=== PATIENT | male | born 1990 | race Caucasian/White ===

== ENCOUNTER 2016-10-08 21:32 | Inpatient (IN) | payer BC, OTHER ==
[~2016-10-08] VITALS: Ht 177.8 cm; Wt 70.0 kg
[~2016-10-08 21:32] MED LIST: ALBUTEROL SULF8.5 GM IH; CLEAR EYES ITCH15 ML BOTH EYES; ENTOCORT EC3 MG PO; FOLVITE1 M1 PO; Flagyl PO; Flovent 110 mcg IH; Folvite PO; METHOTREXATE2.5 M2 PO; METRONIDAZOLE500 MG PO; PENTASA500 MG PO; PREDNISONE10 M1 PO; PREDNISONE10 MG PO; PREDNISONE20 MG PO; PREVACID30 MG PO; PROAIR HFA8.5 GM IH; Pentasa PO; Prevacid PO; Proventil,Ventolin H IH; REMICADE10 MG/ML IV; TRAMADOL HCL50 MG PO; Zantac PO; predniSONE PO
[2016-10-08 22:25] LABS: HEMATOCRIT 48.1 % (38.0-50.0); MCH 27.1 PG (29.0-34.0); MCHC 33.1 G/DL (30.0-36.0); MCV 82.1 FL (86-99); MEAN PLAT.VOLUME 9.1 uM^3 (9.0-12.4); PLATELET COUNT 347 K/uL (156-360); RBC DIS.WIDTH-CV 13.2 % (11.8-14.6); RBC DIS.WIDTH-SD 38.6 % (39-53); RED BLOOD COUNT 5.86 M/uL (4.00-5.50); WHITE BLOOD COUNT 16.1 K/uL (4.1-10.2)
[2016-10-08 22:40] LABS: CHLORIDE 108 mEq/L (99-109); POTASSIUM 4.4 mEq/L (3.7-5.4); SODIUM 139 mEq/L (136-147)
[2016-10-08 22:42] LABS: GLUCOSE 112 mg/dL (70-99)
[2016-10-08 22:43] LABS: ANION GAP 8 MEQ/L (2-14)
[2016-10-08 22:44] LABS: TOTAL BILIRUBIN 0.5 mg/dL (0.0-1.0)
[2016-10-08 22:47] LABS: ALKALINE PHOSPHATASE 112 IU/L (3-129); GFR ESTIMATE (CALCULATED) > 59 mL/min/; UREA NITROGEN (BUN) 11 mg/dL (9-23)
[2016-10-08 23:00] LABS: LIPASE 14 U/L (1.0-51.0)
[2016-10-08] MEDS ORDERED: HUMIRA40 MG/0.1 SC (23:27)
[2016-10-09 01:20] LABS: ADD MIUA? NO; BILIRUBIN NEGATIVE; BLOOD NEGATIVE; COLOR YELLOW ((YELLOW)); GLUCOSE (STRIP) NEGATIVE; KETONES 20; LEUKOCYTES NEGATIVE; NITRITE NEGATIVE; PROTEIN (STRIP) NEGATIVE; SPECIFIC GRAVITY 1.044 (1.000-1.030); UCUL ADDED? NO; UROBILINOGEN 0.2 MG/DL (0.2-1.0)
[2016-10-09 08:29] VITALS: BP 122/71
[2016-10-09 11:56] VITALS: BP 128/69
[2016-10-09] MEDS ORDERED: ALLEGRA60 MG PO (12:33)
[2016-10-09] MEDS ORDERED: SINGULAIR10 MG PO (12:33)
[2016-10-09 15:53] VITALS: BP 128/66
[2016-10-09 19:14] VITALS: BP 119/66
[2016-10-10 00:11] VITALS: BP 115/61
[2016-10-10 03:25] VITALS: BP 120/67
[2016-10-10 06:10] LABS: EOSINOPHIL (%) 0 % (0-5); HEMATOCRIT 40.3 % (38.0-50.0); IMMATURE GRANULOCYTE (%) 0.7 % (0.0-0.7); IMMATURE GRANULOCYTE COUNT 0.1 K/uL; INSTRUMENT ABS NEUTROPHIL CT 10.6 K/uL; LYMPHOCYTE COUNT 1.5 K/uL (1.0-2.8); MCH 27.7 PG (29.0-34.0); MEAN PLAT.VOLUME 9.5 uM^3 (9.0-12.4); MONOCYTE (%) 1.9 % (3-12); MONOCYTE COUNT 0.2 K/uL (0-0.8); NEUTROPHIL (%) 85.5 % (45-76); NEUTROPHIL COUNT 10.6 K/uL (1.8-6.4); PLATELET COUNT 286 K/uL (156-360); RBC DIS.WIDTH-CV 13.2 % (11.8-14.6); RBC DIS.WIDTH-SD 41.1 % (39-53); WHITE BLOOD COUNT 12.4 K/uL (4.1-10.2)
[2016-10-10 06:29] LABS: ANION GAP 7 MEQ/L (2-14); CHLORIDE 109 MEQ/L (99-109); GFR ESTIMATE (CALCULATED) > 59 mL/min/; GLUCOSE 130 mg/dL (70-99); POTASSIUM 4.5 MEQ/L (3.7-5.4); SAMPLE HEMOLYSIS CHECK 0; SAMPLE ICTERIC CHECK 0; SAMPLE LIPEMIA CHECK 0; SODIUM 141 MEQ/L (136-147); UREA NITROGEN (BUN) 11 mg/dL (9-23)
[2016-10-10 08:12] VITALS: BP 116/59
[2016-10-10 11:20] VITALS: BP 116/58
[2016-10-10 15:45] VITALS: BP 118/56
[2016-10-10 20:10] VITALS: BP 112/60
[2016-10-11 00:36] VITALS: BP 108/58
[2016-10-11 08:45] VITALS: BP 116/63
[2016-10-11 09:43] LABS: HEMATOCRIT 42.9 % (38.0-50.0); MCH 28.5 PG (29.0-34.0); MCHC 33.6 G/DL (30.0-36.0); MEAN PLAT.VOLUME 9.7 uM^3 (9.0-12.4); PLATELET COUNT 300 K/uL (156-360); RBC DIS.WIDTH-CV 13.3 % (11.8-14.6); RBC DIS.WIDTH-SD 40.8 % (39-53); RED BLOOD COUNT 5.05 M/uL (4.00-5.50); WHITE BLOOD COUNT 14.1 K/uL (4.1-10.2)
[2016-10-11 10:48] LABS: ANION GAP 11 MEQ/L (2-14); CHLORIDE 107 MEQ/L (99-109); GFR ESTIMATE (CALCULATED) > 59 mL/min/; GLUCOSE 129 mg/dL (70-99); POTASSIUM 4.6 MEQ/L (3.7-5.4); SAMPLE HEMOLYSIS CHECK 1; SAMPLE ICTERIC CHECK 0; SAMPLE LIPEMIA CHECK 0; SODIUM 142 MEQ/L (136-147); UREA NITROGEN (BUN) 18 mg/dL (9-23)
[2016-10-11] MEDS ORDERED: BENTYL20 MG PO (14:05)
[2016-10-11] MEDS ORDERED: PREDNISONE10 MG PO (14:26)
== END 2016-10-11 15:26 | disposition home or self-care (01) | DRG 386 ==
LOC: EME 21:32 → RME 21:32 → EDOF 10-09 02:06 → 3EAST 10-09 02:06
PROVIDERS: Hospitalist; Physician Assistant
DX: K50.012 Crohn's disease of small intestine with intestinal obstruction (principal); K56.69 Other intestinal obstruction; J45.909 Unspecified asthma, uncomplicated; E86.0 Dehydration; D72.829 Elevated white blood cell count, unspecified
CPT/HCPCS: 74020; 74177; 80048; 80053; 81003; 83690; 85025; 85027; 87493; 99202; 99281; 99285; J1650; J1885; J1956; J2270; J2405; J2920; J7030; J7042; S0028; S0030

== ENCOUNTER 2017-01-02 17:58 | Inpatient (IN) | payer BC, OTHER ==
[~2017-01-02] VITALS: Ht 177.8 cm; Wt 71.5 kg
[~2017-01-02 17:58] MED LIST changes: +ALLEGRA ALLERG180 MG PO; +BENTYL20 MG PO; +HUMIRA40 MG/0.1 SC; +SINGULAIR10 MG PO
[2017-01-02 19:17] LABS: HEMATOCRIT 34.3 % (38.0-50.0); MCH 28.1 PG (29.0-34.0); MCHC 34.1 G/DL (30.0-36.0); MCV 82.3 FL (86-99); MEAN PLAT.VOLUME 9.2 uM^3 (9.0-12.4); PLATELET COUNT 268 K/uL (156-360); RBC DIS.WIDTH-CV 13.2 % (11.8-14.6); RBC DIS.WIDTH-SD 39.5 % (39-53); RED BLOOD COUNT 4.17 M/uL (4.00-5.50); WHITE BLOOD COUNT 11.5 K/uL (4.1-10.2)
[2017-01-02 19:28] LABS: CHLORIDE 112 mEq/L (99-109); POTASSIUM 4.2 mEq/L (3.7-5.4); SODIUM 143 mEq/L (136-147)
[2017-01-02 19:30] LABS: GLUCOSE 113 mg/dL (70-99)
[2017-01-02 19:31] LABS: ANION GAP 7 MEQ/L (2-14)
[2017-01-02 19:32] LABS: TOTAL BILIRUBIN 0.6 mg/dL (0.0-1.0)
[2017-01-02 19:34] LABS: ALKALINE PHOSPHATASE 77 IU/L (3-129); GFR ESTIMATE (CALCULATED) > 59 mL/min/
[2017-01-02 19:35] LABS: UREA NITROGEN (BUN) 29 mg/dL (9-23)
[2017-01-02 23:28] LABS: ADD MIUA? NO; BILIRUBIN NEGATIVE; BLOOD NEGATIVE; COLOR STRAW ((YELLOW)); GLUCOSE (STRIP) NEGATIVE; KETONES NEGATIVE; LEUKOCYTES NEGATIVE; NITRITE NEGATIVE; PROTEIN (STRIP) NEGATIVE; UCUL ADDED? NO; UROBILINOGEN 0.2 MG/DL (0.2-1.0)
[2017-01-02 23:40] LABS: SPECIFIC GRAVITY 1.052 (1.000-1.030)
[2017-01-03] VITALS (8 sets, daily range): BP systolic 109–124; BP diastolic 53–60
[2017-01-03 00:43] LABS: HEMATOCRIT 30.7 % (38.0-50.0); MCV 82.7 FL (86-99)
[2017-01-03 07:06] LABS: HEMATOCRIT 33.5 % (38.0-50.0); MCV 82.9 FL (86-99)
[2017-01-03 11:28] LABS: C DIFF TOXIN NEGATIVE (NEGATIVE); PROBE CHECK PASS; SPECIMEN PROCESSING CONTROL PASS
[2017-01-03 13:00] LABS: HEMATOCRIT 33.6 % (38.0-50.0); MCV 83.4 FL (86-99)
[2017-01-04] VITALS (7 sets, daily range): BP systolic 112–130; BP diastolic 54–62
[2017-01-04 06:39] LABS: HEMATOCRIT 26.9 % (38.0-50.0); MCHC 33.5 G/DL (30.0-36.0); MCV 83.5 FL (86-99); MEAN PLAT.VOLUME 9.7 uM^3 (9.0-12.4); PLATELET COUNT 244 K/uL (156-360); RBC DIS.WIDTH-CV 13.3 % (11.8-14.6); RBC DIS.WIDTH-SD 40.4 % (39-53); WHITE BLOOD COUNT 13.8 K/uL (4.1-10.2)
[2017-01-04 06:40] LABS: RED BLOOD COUNT 3.22 M/uL (4.00-5.50)
[2017-01-04 07:01] LABS: ALKALINE PHOSPHATASE 60 IU/L (3-129); ANION GAP 6 MEQ/L (2-14); CHLORIDE 110 MEQ/L (99-109); GFR ESTIMATE (CALCULATED) > 59 mL/min/; GLUCOSE 129 mg/dL (70-99); POTASSIUM 4.5 MEQ/L (3.7-5.4); SAMPLE HEMOLYSIS CHECK 0; SAMPLE ICTERIC CHECK 0; SAMPLE LIPEMIA CHECK 0; SODIUM 143 MEQ/L (136-147); TOTAL BILIRUBIN 0.4 MG/DL (0.0-1.0); UREA NITROGEN (BUN) 17 mg/dL (9-23)
[2017-01-04 11:16] LABS: POINT-OF-CARE METER ID UU14117124
[2017-01-05 03:31] VITALS: BP 112/56
[2017-01-05 05:54] LABS: MCH 27.7 PG (29.0-34.0); MCHC 32.7 G/DL (30.0-36.0); MCV 84.7 FL (86-99); MEAN PLAT.VOLUME 9.8 uM^3 (9.0-12.4); PLATELET COUNT 235 K/uL (156-360); RBC DIS.WIDTH-CV 13.6 % (11.8-14.6); RBC DIS.WIDTH-SD 41.6 % (39-53); RED BLOOD COUNT 3.07 M/uL (4.00-5.50); WHITE BLOOD COUNT 11.1 K/uL (4.1-10.2)
[2017-01-05 06:16] LABS: ANION GAP 5 MEQ/L (2-14); CHLORIDE 110 MEQ/L (99-109); GFR ESTIMATE (CALCULATED) > 59 mL/min/; GLUCOSE 129 mg/dL (70-99); POTASSIUM 4.3 MEQ/L (3.7-5.4); SAMPLE HEMOLYSIS CHECK 0; SAMPLE ICTERIC CHECK 0; SAMPLE LIPEMIA CHECK 0; SODIUM 143 MEQ/L (136-147); UREA NITROGEN (BUN) 18 mg/dL (9-23)
[2017-01-05 07:44] VITALS: BP 109/55
[2017-01-05 11:56] VITALS: BP 115/58
[2017-01-05 15:44] VITALS: BP 121/57
[2017-01-05 16:02] LABS: HEMATOCRIT 26.9 % (38.0-50.0); MCV 84.3 FL (86-99)
[2017-01-05 23:37] LABS: HEMATOCRIT 27.6 % (38.0-50.0); MCV 84.1 FL (86-99)
[2017-01-05 23:55] VITALS: BP 115/57
[2017-01-06 07:57] VITALS: BP 115/59
[2017-01-06 07:59] LABS: HEMATOCRIT 27.2 % (38.0-50.0); MCH 27.4 PG (29.0-34.0); MCV 85.8 FL (86-99); MEAN PLAT.VOLUME 9.6 uM^3 (9.0-12.4); PLATELET COUNT 246 K/uL (156-360); RBC DIS.WIDTH-CV 13.5 % (11.8-14.6); RBC DIS.WIDTH-SD 42.1 % (39-53); RED BLOOD COUNT 3.17 M/uL (4.00-5.50); WHITE BLOOD COUNT 11.6 K/uL (4.1-10.2)
[2017-01-06 11:58] VITALS: BP 114/65
[2017-01-06 14:48] LABS: HEMATOCRIT 27.1 % (38.0-50.0)
[2017-01-06 15:55] VITALS: BP 124/60
[2017-01-06 19:25] VITALS: BP 127/81
[2017-01-06 23:16] LABS: HEMATOCRIT 27.4 % (38.0-50.0); MCV 83.5 FL (86-99)
[2017-01-07 00:12] VITALS: BP 118/56
[2017-01-07 04:01] VITALS: BP 125/59
[2017-01-07 08:35] VITALS: BP 123/59
[2017-01-07 08:41] LABS: MCV 85.3 FL (86-99)
[2017-01-07 14:54] LABS: HEMATOCRIT 29.8 % (38.0-50.0); MCV 85.9 FL (86-99)
[2017-01-07 16:04] VITALS: BP 124/66
[2017-01-07 23:30] VITALS: BP 105/54
[2017-01-07 23:51] LABS: HEMATOCRIT 25.8 % (38.0-50.0); MCV 83.2 FL (86-99)
[2017-01-08 05:04] VITALS: BP 98/52
[2017-01-08 06:08] LABS: HEMATOCRIT 26.7 % (38.0-50.0); MCHC 32.2 G/DL (30.0-36.0); MEAN PLAT.VOLUME 9.8 uM^3 (9.0-12.4); PLATELET COUNT 271 K/uL (156-360); RBC DIS.WIDTH-CV 13.2 % (11.8-14.6); RBC DIS.WIDTH-SD 39.9 % (39-53); RED BLOOD COUNT 3.18 M/uL (4.00-5.50); WHITE BLOOD COUNT 9.2 K/uL (4.1-10.2)
[2017-01-08 08:11] VITALS: BP 116/55
[2017-01-08] MEDS ORDERED: MEDROL DOSEPAK4 MG PO (11:20)
[2017-01-08] MEDS ORDERED: FLAGYL500 MG PO (11:21)
== END 2017-01-08 15:24 | disposition home or self-care (01) | DRG 386 ==
LOC: RME 17:58 → EME 17:58 → EDOF 23:01 → 3EAST 23:01 → ENRESERV 23:04 → 3EAST 01-03 00:25
PROVIDERS: Hospitalist; Internal Medicine Gastroenterology; Physician Assistant Medical
DX: K50.011 Crohn's disease of small intestine with rectal bleeding (principal); D62 Acute posthemorrhagic anemia; E86.0 Dehydration; K64.1 Second degree hemorrhoids; R55 Syncope and collapse; K57.30 Diverticulosis of large intestine without perforation or abscess without bleeding; J45.20 Mild intermittent asthma, uncomplicated; K21.9 Gastro-esophageal reflux disease without esophagitis
CPT/HCPCS: 74177; 80048; 80053; 81003; 82948; 85014; 85018; 85027; 86850; 86900; 86901; 87493; 93005; 99202; 99281; 99285; J2250; J2405; J2765; J2930; J3010; J7030; S0028; S0030

== ENCOUNTER 2017-07-25 10:28 | Inpatient (IN) | payer BC, OTHER ==
[~2017-07-25] VITALS: Ht 172.7 cm; Wt 65.8 kg
[~2017-07-25 10:28] MED LIST changes: +FLAGYL500 MG PO; +MEDROL DOSEPAK4 MG PO
[2017-07-25 11:39] LABS: HEMATOCRIT 46.5 % (38.0-50.0); HEMOGLOBIN 15.4 G/DL (12.5-16.6); MCH 25.9 PG (29.0-34.0); MCHC 33.1 G/DL (30.0-36.0); MCV 78.3 FL (86-99); PLATELET COUNT 401 K/uL (156-360); RBC DIS.WIDTH-CV 13.8 % (11.8-14.6); RBC DIS.WIDTH-SD 39.1 % (39-53); RED BLOOD COUNT 5.94 M/uL (4.00-5.50); WHITE BLOOD COUNT 12.9 K/uL (4.1-10.2)
[2017-07-25 11:52] LABS: ALBUMIN 3.3 g/dL (3.2-4.8); CHLORIDE 104 mEq/L (99-109); POTASSIUM 4.2 mEq/L (3.7-5.4); SODIUM 140 mEq/L (136-147)
[2017-07-25 11:54] LABS: GLUCOSE 95 mg/dL (70-99); TOTAL PROTEIN 6.2 g/dL (6.4-8.3)
[2017-07-25 11:56] LABS: TOTAL BILIRUBIN 0.5 mg/dL (0.0-1.0)
[2017-07-25 11:58] LABS: ALKALINE PHOSPHATASE 144 IU/L (3-129); CREATININE 1.1 mg/dL (0.6-1.3); GFR ESTIMATE (CALCULATED) > 59 mL/min/ (58.99-99999)
[2017-07-25 11:59] LABS: UREA NITROGEN (BUN) 11 mg/dL (9-23)
[2017-07-25 12:00] LABS: AST (GOT) 14 IU/L (2-34)
[2017-07-25 12:01] LABS: ALT (GPT) 18 IU/L (3-49)
[2017-07-25 13:14] LABS: APPEARANCE SL.HAZY ((CLEAR)); BILIRUBIN NEGATIVE; BLOOD NEGATIVE; COLOR YELLOW ((YELLOW)); GLUCOSE (STRIP) NEGATIVE; KETONES NEGATIVE; LEUKOCYTES NEGATIVE; NITRITE NEGATIVE; PROTEIN (STRIP) NEGATIVE; SPECIFIC GRAVITY 1.023 (1.000-1.030); UROBILINOGEN 0.2 MG/DL (0.2-1.0)
[2017-07-25 13:33] LABS: BACTERIA RARE /HPF; CALCIUM OXALATE CRYSTALS 2+ /HPF; EPITHELIAL CELLS NONE SEEN /HPF; HYALINE CASTS 0-5 /LPF; MUCUS TRACE /LPF; UCUL ADDED? YES
[2017-07-26] VITALS: BP 105/56
[2017-07-26 06:30] LABS: HEMATOCRIT 37.8 % (38.0-50.0); MCH 25.5 PG (29.0-34.0); MCV 79.7 FL (86-99); PLATELET COUNT 319 K/uL (156-360); RBC DIS.WIDTH-SD 40.7 % (39-53); WHITE BLOOD COUNT 7.3 K/uL (4.1-10.2)
[2017-07-26 06:31] LABS: HEMOGLOBIN 12.1 G/DL (12.5-16.6); INTER. NORMALIZED RATIO 1.2; RED BLOOD COUNT 4.74 M/uL (4.00-5.50)
[2017-07-26 06:34] LABS: PTT 31.5 SEC (25-37)
[2017-07-26 06:41] LABS: CHLORIDE 109 MEQ/L (99-109); CREATININE 1.1 MG/DL (0.6-1.3); GFR ESTIMATE (CALCULATED) > 59 mL/min/ (58.99-99999); SODIUM 140 MEQ/L (136-147); UREA NITROGEN (BUN) 19 mg/dL (9-23)
[2017-07-26 06:42] LABS: GLUCOSE 62 mg/dL (70-99)
[2017-07-26 06:50] VITALS: BP 110/58
[2017-07-26 15:37] VITALS: BP 112/66
[2017-07-26 23:03] VITALS: BP 119/62
[2017-07-27 07:03] VITALS: BP 108/57
[2017-07-27 15:16] VITALS: BP 108/55
[2017-07-27 22:29] VITALS: BP 123/59
[2017-07-28 07:50] VITALS: BP 119/58
[2017-07-28] MEDS ORDERED: PREDNISONE20 MG PO (10:20)
== END 2017-07-28 12:00 | disposition home or self-care (01) | DRG 386 ==
LOC: EME 10:28 → EDOF 16:37 → 5EAST 16:37 → ENRESERV 16:44 → 5EAST 20:12
PROVIDERS: Internal Medicine
DX: K50.012 Crohn's disease of small intestine with intestinal obstruction (principal); J45.909 Unspecified asthma, uncomplicated; K21.9 Gastro-esophageal reflux disease without esophagitis
CPT/HCPCS: 71045; 74018; 74019; 74177; 80048; 80053; 81003; 85027; 85610; 85730; 87086; 99202; 99281; 99285; J1885; J2405; J2920; J7030

== ENCOUNTER 2017-08-08 09:13 | Emergency (ER) | payer BC, OTHER ==
[~2017-08-08] VITALS: Ht 177.8 cm; Wt 66.2 kg
[2017-08-08 10:04] LABS: BASOPHIL (%) 0.4 % (0-1); EOSINOPHIL (%) 1.3 % (0-5); EOSINOPHIL COUNT 0.1 K/uL (0-0.3); HEMATOCRIT 36.7 % (38.0-50.0); HEMOGLOBIN 12.1 G/DL (12.5-16.6); IMMATURE GRANULOCYTE (%) 0.3 % (0.0-0.7); LYMPHOCYTE (%) 23.7 % (15-42); LYMPHOCYTE COUNT 2.2 K/uL (1.0-2.8); MCH 25.7 PG (29.0-34.0); MCV 77.9 FL (86-99); MONOCYTE (%) 6.4 % (3-12); MONOCYTE COUNT 0.6 K/uL (0-0.8); NEUTROPHIL (%) 67.9 % (45-76); NEUTROPHIL COUNT 6.3 K/uL (1.8-6.4); PLATELET COUNT 362 K/uL (156-360); RBC DIS.WIDTH-CV 13.9 % (11.8-14.6); RBC DIS.WIDTH-SD 39.4 % (39-53); RED BLOOD COUNT 4.71 M/uL (4.00-5.50); WHITE BLOOD COUNT 9.2 K/uL (4.1-10.2)
[2017-08-08 10:15] LABS: ALBUMIN 2.7 g/dL (3.2-4.8)
[2017-08-08 10:16] LABS: CHLORIDE 106 mEq/L (99-109); POTASSIUM 3.6 mEq/L (3.7-5.4); SODIUM 137 mEq/L (136-147)
[2017-08-08 10:18] LABS: GLUCOSE 90 mg/dL (70-99); TOTAL PROTEIN 4.6 g/dL (6.4-8.3)
[2017-08-08 10:20] LABS: TOTAL BILIRUBIN 0.4 mg/dL (0.0-1.0)
[2017-08-08 10:21] LABS: ALKALINE PHOSPHATASE 82 IU/L (3-129)
[2017-08-08 10:22] LABS: CREATININE 0.8 mg/dL (0.6-1.3); GFR ESTIMATE (CALCULATED) > 59 mL/min/ (58.99-99999)
[2017-08-08 10:23] LABS: AST (GOT) 13 IU/L (2-34); UREA NITROGEN (BUN) 13 mg/dL (9-23)
[2017-08-08 10:25] LABS: ALT (GPT) 17 IU/L (3-49); LIPASE 25 U/L (1.0-51.0)
[2017-08-08 11:04] LABS: APPEARANCE CLEAR ((CLEAR)); BILIRUBIN NEGATIVE; BLOOD NEGATIVE; COLOR YELLOW ((YELLOW)); GLUCOSE (STRIP) NEGATIVE; KETONES NEGATIVE; LEUKOCYTES NEGATIVE; NITRITE NEGATIVE; PROTEIN (STRIP) NEGATIVE; SPECIFIC GRAVITY 1.019 (1.000-1.030); UROBILINOGEN 0.2 MG/DL (0.2-1.0)
[2017-08-08] MEDS ORDERED: BENTYL20 MG PO (11:41)
[2017-08-08] MEDS ORDERED: ZOFRAN4 MG PO (11:41)
[2017-08-08 11:57] VITALS: BP 109/73
== END 2017-08-08 12:06 | disposition home or self-care (01) ==
LOC: EME 09:13
PROVIDERS: Emergency Medicine
DX: R10.13 Epigastric pain (principal); R11.2 Nausea with vomiting, unspecified; R19.7 Diarrhea, unspecified; J45.909 Unspecified asthma, uncomplicated
CPT/HCPCS: 74022; 80053; 81003; 83690; 85025; 99281; 99284; J1885; J2405; J7030

== ENCOUNTER 2017-09-07 08:32 | Inpatient (IN) | payer BC, OTHER ==
[~2017-09-07] VITALS: Ht 172.7 cm; Wt 67.9 kg
[~2017-09-07 08:32] MED LIST changes: +ZOFRAN4 MG PO
[2017-09-07 08:53] LABS: APPEARANCE CLEAR ((CLEAR)); BILIRUBIN NEGATIVE; BLOOD NEGATIVE; COLOR YELLOW ((YELLOW)); GLUCOSE (STRIP) NEGATIVE; KETONES NEGATIVE; LEUKOCYTES NEGATIVE; NITRITE NEGATIVE; PROTEIN (STRIP) NEGATIVE; SPECIFIC GRAVITY 1.012 (1.000-1.030); UCUL ADDED? NO; UROBILINOGEN 0.2 MG/DL (0.2-1.0)
[2017-09-07 08:55] LABS: HEMATOCRIT 39.9 % (38.0-50.0); HEMOGLOBIN 12.7 G/DL (12.5-16.6); MCH 25.7 PG (29.0-34.0); MCHC 31.8 G/DL (30.0-36.0); MCV 80.8 FL (86-99); PLATELET COUNT 448 K/uL (156-360); RBC DIS.WIDTH-CV 14.3 % (11.8-14.6); RBC DIS.WIDTH-SD 41.1 % (39-53); RED BLOOD COUNT 4.94 M/uL (4.00-5.50); WHITE BLOOD COUNT 13.1 K/uL (4.1-10.2)
[2017-09-07 09:08] LABS: ALBUMIN 3.4 g/dL (3.2-4.8); CHLORIDE 101 mEq/L (99-109); POTASSIUM 4.1 mEq/L (3.7-5.4); SODIUM 138 mEq/L (136-147)
[2017-09-07 09:10] LABS: GLUCOSE 84 mg/dL (70-99); TOTAL PROTEIN 5.7 g/dL (6.4-8.3)
[2017-09-07 09:12] LABS: TOTAL BILIRUBIN 0.5 mg/dL (0.0-1.0)
[2017-09-07 09:14] LABS: ALKALINE PHOSPHATASE 85 IU/L (3-129); CREATININE 0.9 mg/dL (0.6-1.3); GFR ESTIMATE (CALCULATED) > 59 mL/min/ (58.99-99999)
[2017-09-07 09:15] LABS: UREA NITROGEN (BUN) 13 mg/dL (9-23)
[2017-09-07 09:16] LABS: AST (GOT) 12 IU/L (2-34)
[2017-09-07 09:17] LABS: ALT (GPT) 25 IU/L (3-49); LIPASE 27 U/L (1.0-51.0)
[2017-09-07] MEDS ORDERED: ALLEGRA ALLERG180 MG PO (11:18)
[2017-09-07] MEDS ORDERED: PREDNISONE5 MG PO (11:19)
[2017-09-07 13:25] VITALS: BP 124/72
[2017-09-07 16:33] VITALS: BP 119/64
[2017-09-07] MEDS ORDERED: SOLU-MEDRO40 MG/1 ML IV (16:48)
[2017-09-07 19:35] VITALS: BP 131/60
[2017-09-07 23:29] VITALS: BP 132/75
[2017-09-07 23:32] VITALS: BP 132/75
== END 2017-09-07 23:48 | disposition short-term general hospital (02) | DRG 386 ==
LOC: EME 08:32 → EDOF 11:06 → ENRESERV 11:12 → 3EAST 13:12
DX: K50.012 Crohn's disease of small intestine with intestinal obstruction (principal); B02.9 Zoster without complications; J45.909 Unspecified asthma, uncomplicated; K21.9 Gastro-esophageal reflux disease without esophagitis; K64.9 Unspecified hemorrhoids; Z79.899 Other long term (current) drug therapy
CPT/HCPCS: 71045; 74177; 80053; 81003; 83690; 85027; 99281; 99285; J1650; J1885; J2405; J2920; J7030; J7040

== ENCOUNTER 2017-11-24 11:13 | Emergency (ER) | payer BC, OTHER ==
[~2017-11-24] VITALS: Ht 180.3 cm; Wt 75.2 kg
[~2017-11-24 11:13] MED LIST changes: +PREDNISONE5 MG PO; +SOLU-MEDRO40 MG/1 ML IV
[2017-11-24 12:22] LABS: CHLORIDE 109 mEq/L (99-109); POTASSIUM 3.8 mEq/L (3.7-5.4); SODIUM 140 mEq/L (136-147)
[2017-11-24 12:23] LABS: GLUCOSE 99 mg/dL (70-99)
[2017-11-24 12:23] LABS: BASOPHIL (%) 0.5 % (0-1); EOSINOPHIL (%) 3.5 % (0-5); EOSINOPHIL COUNT 0.3 K/uL (0-0.3); HEMATOCRIT 34.2 % (38.0-50.0); HEMOGLOBIN 10.2 G/DL (12.5-16.6); IMMATURE GRANULOCYTE (%) 0.2 % (0.0-0.7); LYMPHOCYTE (%) 17.5 % (15-42); LYMPHOCYTE COUNT 1.5 K/uL (1.0-2.8); MCH 21.7 PG (29.0-34.0); MCHC 29.8 G/DL (30.0-36.0); MCV 72.6 FL (86-99); MONOCYTE (%) 5.4 % (3-12); MONOCYTE COUNT 0.5 K/uL (0-0.8); NEUTROPHIL (%) 72.9 % (45-76); PLATELET COUNT 319 K/uL (156-360); RBC DIS.WIDTH-CV 14.2 % (11.8-14.6); RBC DIS.WIDTH-SD 37.2 % (39-53); RED BLOOD COUNT 4.71 M/uL (4.00-5.50); WHITE BLOOD COUNT 8.3 K/uL (4.1-10.2)
[2017-11-24 12:27] LABS: CREATININE 0.8 mg/dL (0.6-1.3); GFR ESTIMATE (CALCULATED) > 59 mL/min/ (58.99-99999)
[2017-11-24 12:28] LABS: UREA NITROGEN (BUN) 7 mg/dL (9-23)
[2017-11-24 12:31] LABS: TROP-I INTERPRETATION NEGATIVE; TROPONIN-I < 0.01 ng/mL (0.0-0.30)
[2017-11-24 13:52] VITALS: BP 121/69
== END 2017-11-24 13:54 | disposition home or self-care (01) ==
LOC: EME 11:13
PROVIDERS: Emergency Medicine
DX: R55 Syncope and collapse (principal); J45.909 Unspecified asthma, uncomplicated; K21.9 Gastro-esophageal reflux disease without esophagitis; K50.90 Crohn's disease, unspecified, without complications; Z88.8 Allergy status to other drugs, medicaments and biological substances
CPT/HCPCS: 71045; 80048; 84484; 85025; 93005; 99281; 99284; J7030